=== PATIENT | female | born 1990 | race African-American/Black ===

== ENCOUNTER 2018-01-14 16:14 | Emergency (ER) | payer BC ==
[2018-01-14] MEDS ORDERED: METOCLOPRAMIDE HCL INJ/PF 10 MG/2 ML SDV IV ONE (17:02)
[2018-01-14] MEDS ORDERED: NORMAL SALINE 1000 ML 1,000 ML IV ONE (17:02)
--- NOTE | 2018-01-14 17:03 | ER Document Report ---
ED Medical Screen (RME) - General Chief Complaint: Nausea/Vomiting Stated Complaint: VOMITING, HEADACHE Time Seen by Provider: 01/14/18 17:02 Notes: Patient is 14 weeks and presents with severe vomiting and weakness. States she was referred from clinic to come to the emergency department today. 10 days ago she states she had an ultrasound and everything was "normal". TRAVEL OUTSIDE OF THE [place] IN LAST 30 DAYS: No - Related Data Allergies/Adverse Reactions: Penicillins Allergy (Verified 01/14/18 16:16) NAUSEA AND VOMITING tomato Adverse Reaction (Intermediate, Verified 01/14/18 16:16) ITCHING rice Adverse Reaction (Verified 01/14/18 16:16) ITCHING DUST Adverse Reaction (Uncoded 01/14/18 16:16) ITCHING Past Medical History - Social History Chew tobacco use (# tins/day): No Frequency of alcohol use: None Drug Abuse: None - Past Medical History Cardiac Medical History: Reports: Hx DVT - YRS. AGO, SUSPECTED, NEVER FOLLOWED UP FOR DOPPLER, SXS RESOLVED. Denies: Hx Coronary Artery Disease, Hx Heart Attack, Hx Hypertension Pulmonary Medical History: Reports: Hx Asthma, Hx Bronchitis, Hx Pneumonia Denies: Hx COPD Neurological Medical History: Denies: Hx Cerebrovascular Accident, Hx Seizures Renal/ Medical History: Denies: Hx Peritoneal Dialysis Musculoskeltal Medical History: Denies Hx Arthritis Past Surgical History: Denies: Hx Hysterectomy - Immunizations Immunizations up to date: Yes Hx Diphtheria, Pertussis, Tetanus Vaccination: Yes - utd Physical Exam - Vital signs Vitals: Temp Pulse Resp BP Pulse Ox 98.6 F 79 18 128/72 H 97 01/14/18 16:30 01/14/18 16:30 01/14/18 16:30 01/14/18 16:30 01/14/18 16:30 Course - Vital Signs Vital signs: Temp Pulse Resp BP Pulse Ox 98.6 F 79 18 128/72 H 97 01/14/18 16:30 01/14/18 16:30 01/14/18 16:30 01/14/18 16:30 01/14/18 16:30
[2018-01-14 17:49] LABS: ABSOLUTE BASOPHILS # (AUTO) 0.1 10^3/uL (0.0-0.2); ABSOLUTE EOSINOPHILS # (AUTO) 0.2 10^3/uL (0.0-0.6); ABSOLUTE LYMPHOCYTES (AUTO) 2.6 10^3/uL (0.5-4.7); ABSOLUTE MONOCYTES (AUTO) 0.3 10^3/uL (0.1-1.4); ABSOLUTE NEUT (AUTO) 4.6 10^3/uL (1.7-8.2); EOSINOPHILS % (AUTO) 2.5 % (0-6); HEMATOCRIT 40.4 % (36.0-47.0); HEMOGLOBIN 13.1 g/dL (12.0-15.5); LYMPHOCYTES % (AUTO) 33.7 % (13-45); MEAN CORPUSCULAR HEMOGLOBIN 25.1 pg (27.0-33.4); MEAN CORPUSCULAR HGB CONC 32.4 g/dL (32.0-36.0); MEAN CORPUSCULAR VOLUME 77 fl (80-97); MONOCYTES % (AUTO) 4.3 % (3-13); PLATELET COUNT 409 10^3/uL (150-450); RED BLOOD COUNT 5.22 10^6/uL (3.72-5.28); RED CELL DISTRIBUTION WIDTH 15.3 % (11.5-14.0); SEGMENTED NEUTROPHILS % (AUTO) 58.5 % (42-78); TOTAL CELLS COUNTED % (AUTO) 100 %; WHITE BLOOD COUNT 7.8 10^3/uL (4.0-10.5)
[2018-01-14 17:57] LABS: APPEARANCE,URINE CLEAR; BILIRUBIN,URINE NEGATIVE (NEGATIVE); GLUCOSE, URINE NEGATIVE (NEGATIVE); KETONES,URINE NEGATIVE (NEGATIVE); LEUKOCYTE ESTERASE,URINE NEGATIVE (NEGATIVE); NITRITE,URINE NEGATIVE (NEGATIVE); PROTEIN,URINE 30 mg/dL (NEGATIVE); URINE SPECIFIC GRAVITY 1.027
[2018-01-14 17:59] LABS: COLOR,URINE YELLOW
[2018-01-14 18:03] LABS: ALANINE AMINOTRANSFERASE 20 U/L (9-52); ALBUMIN 4.5 g/dL (3.5-5.0); ALKALINE PHOSPHATASE 85 U/L (38-126); ANION GAP 12 (5-19); ASPARTATE AMINO TRANSFERASE 27 U/L (14-36); BILIRUBIN,DIRECT 0.4 mg/dL (0.0-0.4); BILIRUBIN,TOTAL 0.4 mg/dL (0.2-1.3); BLOOD UREA NITROGEN 4 mg/dL (7-20); CALCIUM 9.7 mg/dL (8.4-10.2); CARBON DIOXIDE 24 mmol/L (22-30); CHLORIDE 103 mmol/L (98-107); GLUCOSE 85 mg/dL (75-110); POTASSIUM 3.9 mmol/L (3.6-5.0); SODIUM 138.6 mmol/L (137-145); TOTAL PROTEIN 8.4 g/dL (6.3-8.2)
--- NOTE | 2018-01-14 19:49 | ER Document Report ---
ED General - General Chief Complaint: Nausea/Vomiting Stated Complaint: VOMITING, HEADACHE Time Seen by Provider: 01/14/18 17:02 TRAVEL OUTSIDE OF THE [place] IN LAST 30 DAYS: No - HPI Notes: Patient is a 27-year-old female approximately 14 weeks who presents to the ED complaining of nausea, vomiting 2-3 today as well as lower abdominal cramping that has remained constant throughout the day. Patient states that she was directed to the emergency department by her [facility] clinic. Patient has not vomited in the last 6 hours. She has had a decreased p.o. intake today. She denies any significant past medical history. She denies any smoking, IV drug use, alcohol. She has not noticed any vaginal discharge, odor , or bleeding. Denies any headache, fever, neck pain, URI, sore throat, chest pain, palpitations, syncope, cough, shortness of breath, wheeze, dyspnea, diarrhea, urinary retention, dysuria, hematuria, back pain, loss of control of bowel or bladder, numbness/tingling, saddle anesthesia, muscle paralysis/ weakness, or rash. - Related Data Allergies/Adverse Reactions: Penicillins Allergy (Verified 01/14/18 16:16) NAUSEA AND VOMITING tomato Adverse Reaction (Intermediate, Verified 01/14/18 16:16) ITCHING rice Adverse Reaction (Verified 01/14/18 16:16) ITCHING DUST Adverse Reaction (Uncoded 01/14/18 16:16) ITCHING Past Medical History - Social History Smoking Status: Never Smoker Chew tobacco use (# tins/day): No Frequency of alcohol use: None Drug Abuse: None Family History: CAD, Hypertension Patient has suicidal ideation: No Patient has homicidal ideation: No - Past Medical History Cardiac Medical History: Reports: Hx DVT - YRS. AGO, SUSPECTED, NEVER FOLLOWED UP FOR DOPPLER, SXS RESOLVED. Denies: Hx Coronary Artery Disease, Hx Heart Attack, Hx Hypertension Pulmonary Medical History: Reports: Hx Asthma, Hx Bronchitis, Hx Pneumonia Denies: Hx COPD Neurological Medical History: Denies: Hx Cerebrovascular Accident, Hx Seizures Renal/ Medical History: Denies: Hx Peritoneal Dialysis Musculoskeltal Medical History: Denies Hx Arthritis Past Surgical History: Denies: Hx Hysterectomy - Immunizations Immunizations up to date: Yes Hx Diphtheria, Pertussis, Tetanus Vaccination: Yes - utd Review of Systems - Review of Systems -: Yes All other systems reviewed and negative Physical Exam - Vital signs Vitals: Temp Pulse Resp BP Pulse Ox 98.6 F 79 18 128/72 H 97 01/14/18 16:30 01/14/18 16:30 01/14/18 16:30 01/14/18 16:30 01/14/18 16:30 - Notes Notes: PHYSICAL EXAMINATION: GENERAL: Well-appearing, well-nourished and in no acute distress. A&Ox4. Answers questions appropriately. HEAD: Atraumatic, normocephalic. EYES: Pupils equal round and reactive to light, extraocular movements intact, sclera anicteric, conjunctiva are normal. LUNGS: Breath sounds clear to auscultation bilaterally and equal. No wheezes rales or rhonchi. HEART: Regular rate and rhythm without murmurs, rubs, gallops. ABDOMEN: Soft, nondistended abdomen. No guarding, no rebound. No masses appreciated. Normal bowel sounds present. No CVA tenderness bilaterally. + mild tenderness to the lower abd b/l. No tenderness at McBurney point. segura negative. Musculoskeletal: FROM to passive/active. Strength 5+/5. Extremities: No cyanosis, clubbing, or edema b/l. Peripheral pulses 2+. Capillary refill less than 3 seconds. NEUROLOGICAL: Normal speech, normal gait. Normal sensory, motor exams PSYCH: Normal mood, normal affect. SKIN: Warm, Dry, normal turgor, no rashes or lesions noted. Course - Re-evaluation Re-evalutation: 01/14/18 21:24 Patient is an afebrile, well-hydrated, 27-year-old female who presents to the ED with resolved nausea and vomiting. Patient also has pelvic cramping during . Vitals are acceptable. PE is otherwise unremarkable. CBC, CMP, urinalysis were unremarkable for any acute pathology. Transabdominal well -being ultrasound was unremarkable for any acute pathology. Patient is tolerating p.o. without any difficulties. She has not had any episodes of emesis throughout her stay. Patient's abdomen was otherwise soft and did not have any tenderness at McBurney point and had a negative Segura sign. No other labs or imaging warranted at this time based on H&P. Low suspicion/risk for acute appendicitis, bowel obstruction, acute cholecystitis, acute cholangitis, perforated diverticulitis, incarcerated hernia, pancreatitis, perforated ulcer, peritonitis, sepsis, pelvic inflammatory disease, or other systemic emergent condition at this time. Patient is aware that her condition can change from initial presentation and she needs to monitor symptoms closely and seek medical attention if any acute changes. Conservative measures otherwise for symptoms. Recheck with OBGYN in 2-3 days. Recheck with your PCM in 1 week. Return to the ED with any worsening/concerning symptoms otherwise as reviewed in discharge. Patient is in agreement. - Vital Signs Vital signs: Temp Pulse Resp BP Pulse Ox 98.6 F 79 18 128/72 H 97 01/14/18 16:30 01/14/18 16:30 01/14/18 16:30 01/14/18 16:30 01/14/18 16:30 - Laboratory Result Diagrams: 01/14/18 17:25 01/14/18 17:25 Laboratory results interpreted by me: 01/14/18 01/14/18 01/14/18 17:25 17:25 17:25 MCV 77 L MCH 25.1 L RDW 15.3 H BUN 4 L Total Protein 8.4 H Urine Protein 30 H Urine Urobilinogen 4.0 H Discharge - Discharge Clinical Impression: Pelvic pain affecting Qualifiers: Trimester: unspecified trimester Qualified Code(s): O26.899 - Other specified related conditions, unspecified trimester; R10.2 - Pelvic and perineal pain; R10.2 - Pelvic and perineal pain Condition: Stable Disposition: HOME, SELF-CARE Instructions: Pelvic Pain in ([facility]), Antinausea Medication ([facility]) Additional Instructions: Maintain adequate fluid and food intake [place] diet ([facility] Bananas, rice, apples, toast, etc Zofran as needed tylenol if needed Monitor for any worsening symptoms Make sure you are staying hydrated enough to urinate and have normal BM's Recheck with your PCM in 1 week Schedule an appointment with OBGYN for recheck x2-3 days Return to the ED with any worsening symptoms and/or development of fever, headache, chest pain, palpitations, syncope, shortness of breath, trouble breathing, abdominal pain, n/v/d, blood in stool/urine, weakness, or other worsening symptoms that are concerning to you. Prescriptions: Ondansetron [Zofran Odt 4 mg Tablet] 1 - 2 tab PO Q4H PRN #15 tab.rapdis PRN Reason: For Nausea/Vomiting Forms: Elevated Blood Pressure [facility] - Follow up as needed
--- NOTE | 2018-01-14 21:20 | RADIOLOGY REPORT (SQ) ---
EXAM DESCRIPTION: U/S OB LIMITED COMPLETED DATE/TIME: 01/14/2018 9:08 pm REASON FOR STUDY: approx 14 weeks , cramping COMPARISON: None. TECHNIQUE: Limited transvaginal grayscale ultrasound for evaluation of specific requested obstetrica l parameters. LIMITATIONS: None. FINDINGS: CERVICAL LENGTH: 4 cm Closed. ALF: 9.1 cm. FHR: 163 beats per minute. PRESENTATION: Transverse. OTHER: Posterior placenta. IMPRESSION: LIMITED OBSTETRICAL ULTRASOUND WITH MEASURED PARAMETERS DELINEATED ABOVE. Trimester of : First trimester - 0 to 13 weeks. TECHNICAL DOCUMENTATION: JOB ID: [id number] [employer]- All Rights Reserved Reading location - IP/workstation name: [email or web address]
[2018-01-14 22:11] VITALS: BP 109/70
== END 2018-01-14 22:05 | disposition home or self-care (01) ==
LOC: ER 16:14
DX: O26.891 Other specified pregnancy related conditions, first trimester (principal); R10.2 Pelvic and perineal pain; O21.9 Vomiting of pregnancy, unspecified; O99.511 Diseases of the respiratory system complicating pregnancy, first trimester; J45.909 Unspecified asthma, uncomplicated; Z3A.00 Weeks of gestation of pregnancy not specified
CPT/HCPCS: 99284; 96361; 96374; 36415; 85025; 80053; 81001; 76815; J2765; J7030

== ENCOUNTER 2018-07-03 13:03 | Outpatient (CLI) | payer OTHER ==
[2018-07-03 14:58] LABS: ABSOLUTE BASOPHILS # (AUTO) 0.1 10^3/uL (0.0-0.2); ABSOLUTE LYMPHOCYTES (AUTO) 1.9 10^3/uL (0.5-4.7); ABSOLUTE MONOCYTES (AUTO) 0.4 10^3/uL (0.1-1.4); ABSOLUTE NEUT (AUTO) 5.3 10^3/uL (1.7-8.2); BASOPHILS % (AUTO) 0.9 % (0-2); EOSINOPHILS % (AUTO) 0.5 % (0-6); HEMATOCRIT 36.4 % (36.0-47.0); HEMOGLOBIN 11.8 g/dL (12.0-15.5); LYMPHOCYTES % (AUTO) 25.3 % (13-45); MEAN CORPUSCULAR HEMOGLOBIN 24.8 pg (27.0-33.4); MEAN CORPUSCULAR HGB CONC 32.4 g/dL (32.0-36.0); MEAN CORPUSCULAR VOLUME 76 fl (80-97); MONOCYTES % (AUTO) 4.6 % (3-13); PLATELET COUNT 301 10^3/uL (150-450); RED BLOOD COUNT 4.76 10^6/uL (3.72-5.28); RED CELL DISTRIBUTION WIDTH 15.3 % (11.5-14.0); SEGMENTED NEUTROPHILS % (AUTO) 68.7 % (42-78); TOTAL CELLS COUNTED % (AUTO) 100 %; WHITE BLOOD COUNT 7.7 10^3/uL (4.0-10.5)
[2018-07-03 15:01] LABS: APPEARANCE,URINE CLOUDY; BILIRUBIN,URINE NEGATIVE (NEGATIVE); COLOR,URINE YELLOW; GLUCOSE, URINE NEGATIVE (NEGATIVE); KETONES,URINE NEGATIVE (NEGATIVE); LEUKOCYTE ESTERASE,URINE SMALL (NEGATIVE); NITRITE,URINE NEGATIVE (NEGATIVE); PROTEIN,URINE 30 mg/dL (NEGATIVE)
[2018-07-03 15:18] LABS: URINE AMPHETAMINES SCREEN NEGATIVE; URINE BARBITURATES SCREEN NEGATIVE; URINE BENZODIAZEPINES SCREEN NEGATIVE; URINE COCAINE SCREEN NEGATIVE; URINE MARIJUANA (THC) SCREEN NEGATIVE; URINE METHADONE SCREEN NEGATIVE; URINE PHENCYCLIDINE SCREEN NEGATIVE
[2018-07-03 15:25] LABS: ALANINE AMINOTRANSFERASE 22 U/L (9-52); ALBUMIN 3.4 g/dL (3.5-5.0); ALKALINE PHOSPHATASE 193 U/L (38-126); ANION GAP 10 (5-19); ASPARTATE AMINO TRANSFERASE 15 U/L (14-36); BILIRUBIN,DIRECT 0.4 mg/dL (0.0-0.4); BILIRUBIN,TOTAL 0.5 mg/dL (0.2-1.3); BLOOD UREA NITROGEN 5 mg/dL (7-20); CALCIUM 8.6 mg/dL (8.4-10.2); CARBON DIOXIDE 20 mmol/L (22-30); CHLORIDE 107 mmol/L (98-107); GLUCOSE 76 mg/dL (75-110); POTASSIUM 4.2 mmol/L (3.6-5.0); SODIUM 136.8 mmol/L (137-145); TOTAL PROTEIN 6.3 g/dL (6.3-8.2); URIC ACID 5.6 mg/dL (2.5-6.2)
[2018-07-03 15:28] LABS: URINE CREATININE 248.6 mg/dL (16-327); URINE PROTEIN 7.4 mg/dL (<12)
[2018-07-03] MEDS ORDERED: MICONAZOLE NITRATE 200 MG/SUPP (3 SUPP/BOX) VG SCH (17:00)
--- NOTE | 2018-07-03 17:39 | Non Stress Test Report ---
Non Stress Test Datetime Report Generated by CPN: 07/03/2018 17:39 DEMOGRAPHIC EGA NST: 38.5 EGA NST: 38.5 INDICATION Indication for Study: Other Indication for Study: Ordered by Provider Indication for Study (NST) Other: Labor check Indication for Study (NST) Other: lc URINE RESULTS Urine Protein, NST: Negative MONITORING Monitor Explained: Monitor Explained; Test Explained; Patient Verbalized Understanding Monitor Explained: Monitor Explained; Test Explained; Patient Verbalized Understanding Time on Monitor: 07/03/2018 13:23 Time on Monitor: 07/03/2018 13:35 Time off Monitor: 07/03/2018 15:52 NST Duration: 149 NST INTERVENTIONS NST Interventions: None NST Interventions: Reposition Patient Physician Notified NST: Blackwell CNM BABY A: [id number] BABY A Movement : Present Movement : Present Contraction Frequency : 5-7 Contraction Frequency : 7+ FHR Baseline : 130 FHR Baseline : 125 Accelerations : 15X15 Accelerations : 15X15 Decelerations : None Decelerations : None Variability : Moderate 6-25bpm Variability : Moderate 6-25bpm NST Review: Meets Criteria for Reactive NST NST Review: Meets Criteria for Reactive NST NST Review: Meets Criteria for Reactive NST NST Review and Verified By : ROBERTO Brock Results: Reactive NST Results: Reactive NST REPORT Report Trigger: Send Report
== END 2018-07-03 17:15 | disposition home or self-care (01) ==
LOC: LC 13:03
PROVIDERS: ATTEND Obstetrics & Gynecology Gynecology
PROC: 4A1HXCZ Monitoring of Products of Conception, Cardiac Rate, External Approach (ICD-10-PCS; principal; 2018-07-03)
DX: O47.1 False labor at or after 37 completed weeks of gestation (principal); Z3A.38 38 weeks gestation of pregnancy
CPT/HCPCS: 59025; 36415; 83615; 84156; 84550; 82570; 85025; 81005; 80053; 80307; 84112; J3490

== ENCOUNTER 2018-07-03 19:56 | Inpatient (IN) | payer OTHER ==
[2018-07-03] MEDS ORDERED: LIDOCAINE 1% INJ-PF (10 MG/ML) 30 ML SDV ONE (20:05)
[2018-07-03] MEDS ORDERED: MISOPROSTOL 0.2 MG TABLET ONE (20:05)
[2018-07-03] MEDS ORDERED: OXYTOCIN 10 UNIT/ML VIAL ONE (20:05)
[2018-07-03] MEDS ORDERED: OXYTOCIN/NORMAL SALINE 20 UNIT/1,000 ML RTUINJ ONE (20:05)
--- NOTE | 2018-07-03 20:37 | Admission Physical ---
Datetime Report Generated by CPN: 07/03/2018 20:37 CURRENT ADMISSION Chief Complaint: Uterine Contractions Indication for Induction: Not Applicable Admit Impression : Term, Intrauterine Admit Plan: Initiate Labor Protocol ALLERGIES Medication Allergies: Penicillins/NAUSEA AND VOMI (01/14/2018); tomato/MO/ITCHING (01/14/2018); rice/ITCHING (01/14/2018) Food Allergies: tomato rice OBSTETRICAL HISTORY EDC: 07/12/2018 00:00 : 1 Para: 0 Gestational Diabetes: No Rh Sensitization: No Incompetent Cervix: No NATHAN: No Infertility: No ART Treatment: No Uterine Anomaly: No IUGR: No Hx Previous C/S: No Macrosomia: No Hx Loss/Stillborn: No PIH: No Hx : No Placenta Previa/Abruption: No Depression/PP Depression: No PTL/PROM: No Post Hemorrhage: No Current Procedures: Ultrasound; NST SEE RECORDS Alcohol: No Marijuana : No Cocaine: No Other Illicit Drugs: No Cigarettes: Never Smoker. [id number] MEDICAL HISTORY Diabetes: No Blood Transfusion: No Pulmonary Disease (Asthma, TB): Yes Breast Disease: No Hypertension: No Stratigrapher Surgery: No Heart Disease: No Hosp/Surgery: No Autoimmune Disorder: No Anesthetic Complications: No Kidney Disease: No Abnormal Pap Smear: No Neuro/Epilepsy: No Psychiatric Disorders: No Other Medical Diseases: No Hepatitis/Liver Disease: No Significant Family History: No Varicosities/Phlebitis: No Trauma/Violence : No Thyroid Dysfunction: No Medical History Comments: Hx of asthma last used inhaler a couple weeks ago INFECTIOUS HISTORY Gonorrhea: No Genital Herpes: No Chlamydia: No Tuberculosis: No Syphilis: No Hepatitis: No HIV/AIDS Exposure: No Rash or Viral Illness: No HPV: No PHYSICAL EXAM General: Normal HEENT: Normal Neurologic: Normal Thyroid: Normal Heart: Normal Lungs: Normal Breast: Deferred Back: Normal Abdomen: Normal Genitourinary Exam: Normal Extremities: Normal DTRs: Normal Pelvic Type: Adequate FETUS A EGA: 38.5 PLANS FOR LABOR AND DELIVERY Labor and Delivery: None Pain Management: Epidural Feeding Preference: Breast Benefit of Breast Feed Discussed: Yes Circumcision: N/A INFORMED CONSENT Signature: with User ID: [email or web address]
[2018-07-03] MEDS ORDERED: PSEUDOEPHEDRINE HCL 30 MG TABLET PO PRN (20:40)
[2018-07-03] MEDS ORDERED: ZOLPIDEM TARTRATE 5 MG TABLET PO PRN (20:40)
[2018-07-03] MEDS ORDERED: DIPH/PERTUSS(ACELL)/TETANUS VAC/PF 0.5 ML SYR (>=10YO) IM PRN (20:40)
[2018-07-03] MEDS ORDERED: PROMETHAZINE HCL INJ 25 MG/1 ML VIAL IV PRN (20:40)
[2018-07-03] MEDS ORDERED: OXYTOCIN/NORMAL SALINE 20 UNIT/1,000 ML RTUINJ IV PRN (20:40)
[2018-07-03] MEDS ORDERED: NA PHOS,M-B/NA PHOS,DI-BA (ADULT) 133 ML ENEMA PR PRN (20:40)
[2018-07-03] MEDS ORDERED: MAGNESIUM HYDROXIDE SUSP 30 ML UDCUP PO PRN (20:40)
[2018-07-03] MEDS ORDERED: ACETAMINOPHEN WITH CODEINE #3 TABLET PO PRN (20:40)
[2018-07-03] MEDS ORDERED: DIBUCAINE 1% OINTMENT 28 GM TP PRN (20:40)
[2018-07-03] MEDS ORDERED: PROMETHAZINE HCL 25 MG SUPP.RECT PR PRN (20:40)
[2018-07-03] MEDS ORDERED: PROMETHAZINE HCL 25 MG TABLET PO PRN (20:40)
[2018-07-03] MEDS ORDERED: BENZOCAINE/MENTHOL AEROSOL SPRAY 56 ML TOP PRN (20:40)
[2018-07-03] MEDS ORDERED: GLYCERIN/WITCH HAZEL LEAF 1 EACH MED..PAD TP PRN (20:40)
[2018-07-03] MEDS ORDERED: DIPHENHYDRAMINE HCL 25 MG CAPSULE PO PRN (20:40)
[2018-07-03] MEDS ORDERED: MEASLES,MUMPS&RUBELLA VACC/PF 0.5 ML VIAL SUBCUT PRN (20:40)
[2018-07-03] MEDS ORDERED: ACETAMINOPHEN 650 MG SUPP.RECT PR PRN (20:40)
[2018-07-03 21:06] LABS: ABSOLUTE LYMPHOCYTES (AUTO) 0.9 10^3/uL (0.5-4.7); ABSOLUTE MONOCYTES (AUTO) 0.2 10^3/uL (0.1-1.4); ABSOLUTE NEUT (AUTO) 11.3 10^3/uL (1.7-8.2); BASOPHILS % (AUTO) 0.2 % (0-2); HEMATOCRIT 36.5 % (36.0-47.0); HEMOGLOBIN 11.8 g/dL (12.0-15.5); LYMPHOCYTES % (AUTO) 7.2 % (13-45); MEAN CORPUSCULAR HGB CONC 32.3 g/dL (32.0-36.0); MEAN CORPUSCULAR VOLUME 78 fl (80-97); MONOCYTES % (AUTO) 1.9 % (3-13); PLATELET COUNT 321 10^3/uL (150-450); RED BLOOD COUNT 4.71 10^6/uL (3.72-5.28); RED CELL DISTRIBUTION WIDTH 15.4 % (11.5-14.0); SEGMENTED NEUTROPHILS % (AUTO) 90.7 % (42-78); TOTAL CELLS COUNTED % (AUTO) 100 %; WHITE BLOOD COUNT 12.4 10^3/uL (4.0-10.5)
--- NOTE | 2018-07-03 21:31 | Warning Signs in Babies ---
VOD Warning Signs Datetime Report Generated by [facility]: 07/03/2018 21:30 VOD#608 -Warning Signs in Babies: Needs to be viewed. (07/03/2018 13:27:Nathalie Hudson RN)
--- NOTE | 2018-07-03 22:44 | Delivery Summary ---
Del Sum A-C Datetime Report Generated by CPN: 07/03/2018 22:44 DELIVERY PERSONNEL DELIVERY PERSONNEL: [id number] Delivery Doctor:: Delvin Llamas MD Labor and Delivery Nurse:: Nathalie Hudson RNhop grower Nurse:: Farooq Tamayo RN Product Safety Specialist:: Angela English RN Nursery Nurse:: ROBERTO Chand/WASTE REDUCTION COORDINATOR: ST [facility] Additional Personnel: : Nikki Pepe RN MATERNAL INFORMATION Delivery Anesthesia: None Medications After Delivery: Other-Please Comment Meds After Delivery Comment: Pitocin 20 units IM Maternal Complications: Precipitous Labor (<3hrs) LABOR SUMMARY EDC: 07/12/2018 00:00 No. Babies in Womb: 1 Attempted: No Labor Anesthesia: None LABOR INFORMATION Reason for Induction: Not Applicable Complete Dilatation: 07/03/2018 19:58 Oxytocin: N/A Group B Beta Strep: neg Steroids Given: None Reason Steroids Not Administered: Not Applicable MEMBRANES Membranes Rupture Method: Spontaneous Rupture of Membranes: 07/03/2018 18:30 Length of Rupture (hr): 1.73 STAGES OF LABOR Stage 2 hr: 0 Stage 2 min: 16 Stage 3 hr: 0 Stage 3 min: 8 VAGINAL DELIVERY Episiotomy: None Laceration #1: Perineal Laceration Extension #1: Second Degree Laceration Repair: Yes Laceration Repair Note: 2nd degree tear repaired with 2-0 vicryl Sponge Count Correct: N/A CSECTION DELIVERY Primary Indication: N/A Secondary Indication: N/A CSection Incidence: N/A Labor: N/A Elective: N/A CSection Incision: N/A BABY A INFORMATION Infant Delivery Date/Time: 07/03/2018 20:14 Method of Delivery: Vaginal Born in Route : No : N/A Forceps: N/A Vacuum Extraction: N/A Shoulder Dystocia : No PRESENTATION/POSITION BABY A Presentation: Cephalic Cephalic Presentation: Vertex Breech Presentation: N/A PLACENTA INFORMATION BABY A Placenta Delivery Time : 07/03/2018 20:22 Placenta Method of Delivery: Spontaneous Placenta Status: Delivered SCORES BABY A Heart Rate 1 min: >100 bpm Resp Effort 1 min: Good Cry Reflex Irritability 1 min: Cough or Sneeze or Pulls Away Muscle Tone 1 min: Active Motion Color 1 min: Blue/Pale Resuscitation Effort 1 min: Tactile Stimulation SCORE 1 MIN: 8 Heart Rate 5 min: >100 bpm Resp Effort 5 min: Good Cry Reflex Irritability 5 min: Cough or Sneeze or Pulls Away Muscle Tone 5 min: Active Motion Color 5 min: Body Twining, Extremities Blue Resuscitation Effort 5 min: Tactile Stimulation SCORE 5 MIN: 9 INFORMATION BABY A Gestational Age at Delivery: 38.5 Gestational Status: Early Term- 37- 38.6 Weeks Outcome : Liveborn Condition : Stable Infant Sex: Female IDENTIFICATION BABY A Verification Date/Time: 07/03/2018 20:31 ID Band Number: [id number] Mother's Name Verified: Yes RN Verifying : Julian Tamayo, RN and L. Karuna, SAUSAGE MAKER WEIGHT/LENGTH BABY A Infant Birthweight (gm): 2640 Weight (lb): 5 Infant Weight (oz): 13 Length (in): 18.00 Length (cm): 45.72 CORD INFORMATION BABY A No. Cord Vessels: 3 Nuchal Cord : N/A Cord Blood Taken: Yes-For Eval (Mom's Blood Type - or O+) Infant Suction: Mouth; Nose ASSESSMENT BABY A Infant Complications: None Physical Findings at Delivery: Within Normal Limits Skin to Skin: Yes Skin to Skin Time (min): 60 Transferred To: Nursery BABY B INFORMATION : N/A SIGNATURES Signature: with User ID: [email or web address]
[2018-07-03] MEDS: IBUPROFEN 800 MG TABLET PO SCH ×2 (22:49→22:54)
[2018-07-03] MEDS: FAMOTIDINE 20 MG TABLET PO SCH (22:49)
[2018-07-04] MEDS: IBUPROFEN 800 MG TABLET PO SCH ×3 (05:33→21:10)
[2018-07-04 08:18] LABS: HEMATOCRIT 35.7 % (36.0-47.0); HEMOGLOBIN 11.4 g/dL (12.0-15.5); MEAN CORPUSCULAR HEMOGLOBIN 24.7 pg (27.0-33.4); MEAN CORPUSCULAR VOLUME 77 fl (80-97); PLATELET COUNT 293 10^3/uL (150-450); RED BLOOD COUNT 4.62 10^6/uL (3.72-5.28); RED CELL DISTRIBUTION WIDTH 15.4 % (11.5-14.0); WHITE BLOOD COUNT 13.8 10^3/uL (4.0-10.5)
[2018-07-04] MEDS: PRENATAL VITAMIN W DHA CAPSULE PO SCH (09:09)
[2018-07-04] MEDS: FERROUS SULFATE 325 MG TABLET PO SCH ×2 (09:09→18:09)
[2018-07-04] MEDS: DOCUSATE SODIUM 100 MG CAPSULE PO SCH ×2 (09:09→18:09)
[2018-07-04] MEDS: FAMOTIDINE 20 MG TABLET PO SCH ×2 (09:09→21:10)
[2018-07-04] MEDS: SENNOSIDES/DOCUSATE 8.6-50 MG 1 EACH TABLET PO SCH (09:09)
--- NOTE | 2018-07-04 09:23 | PDOC PROGRESS REPORT ---
Subjective-OB Progress Note for:: 07/04/18 Subjective: Doing well, no c/o, holding baby, Physical Exam (OB) Vital Signs: Temp Pulse Resp BP Pulse Ox 98.3 F 66 16 121/77 99 07/04/18 08:15 07/04/18 08:15 07/04/18 08:15 07/04/18 08:15 07/04/18 08:15 - Lochia Lochia Amount: Moderate 25-50 ml Lochia Color: Rubra/Red - Abdomen Description: Tender, Soft Fundal Description: Firm, Midline Fundal Height: u/u - u/2 Objective-Diagnostic Laboratory: 07/04/18 07:51 07/03/18 07/03/18 07/04/18 20:52 20:52 07:51 WBC 12.4 H 13.8 H RBC 4.71 4.62 Hgb 11.8 L 11.4 L Hct 36.5 35.7 L MCV 78 L 77 L MCH 25.0 L 24.7 L MCHC 32.3 32.0 RDW 15.4 H 15.4 H Plt Count 321 293 Seg Neutrophils % 90.7 H Lymphocytes % 7.2 L Monocytes % 1.9 L Eosinophils % 0.0 Basophils % 0.2 Absolute Neutrophils 11.3 H Absolute Lymphocytes 0.9 Absolute Monocytes 0.2 Absolute Eosinophils 0.0 Absolute Basophils 0.0 Blood Type O POSITIVE Antibody Screen NEGATIVE Assessment and Plan(PN) - Assessment and Plan (1) Delivery normal Is this a current diagnosis for this admission?: Yes - Time Spent with Patient Time with patient: Less than 15 minutes Medications reviewed and adjusted accordingly: Yes - Disposition Anticipated Discharge: Home Within: within 24 hours
[2018-07-05] MEDS: IBUPROFEN 800 MG TABLET PO SCH (06:19)
[2018-07-05 07:57] VITALS: BP 126/81
[2018-07-05] MEDS: DOCUSATE SODIUM 100 MG CAPSULE PO SCH (09:44)
[2018-07-05] MEDS: FAMOTIDINE 20 MG TABLET PO SCH (09:44)
[2018-07-05] MEDS: FERROUS SULFATE 325 MG TABLET PO SCH (09:44)
[2018-07-05] MEDS: SENNOSIDES/DOCUSATE 8.6-50 MG 1 EACH TABLET PO SCH (09:44)
[2018-07-05] MEDS: PRENATAL VITAMIN W DHA CAPSULE PO SCH (09:44)
--- NOTE | 2018-07-05 10:21 | PDOC PROGRESS REPORT ---
Subjective-OB Progress Note for:: 07/05/18 Subjective: Dressed and ready to go home, , no c/o Physical Exam (OB) Vital Signs: Temp Pulse Resp BP Pulse Ox 97.5 F 71 18 126/81 H 99 07/05/18 08:18 07/05/18 08:18 07/05/18 08:18 07/05/18 07:46 07/05/18 08:18 Intake & Output 07/04/18 07/05/18 07/06/18 06:59 06:59 06:59 Intake Total 600 Balance 600 - PIH/Pre-Eclampsia DTR's: 2 + Clonus: Negative Headache: Absent Epigastric Pain: No Visual Changes: No - Lochia Lochia Amount: Scant < 10 ml Lochia Color: Serosa/Brown - Abdomen Description: Soft Hernia Present: No Fundal Description: Firm, Midline Fundal Height: u/u - u/2 Objective-Diagnostic Laboratory: 07/04/18 07:51 Assessment and Plan(PN) - Assessment and Plan (1) Delivery normal Is this a current diagnosis for this admission?: Yes - Time Spent with Patient Medications reviewed and adjusted accordingly: Yes - Disposition Anticipated Discharge: Home Within: Other - home today
--- NOTE | 2018-07-05 10:24 | PDOC DISCHARGE SUMMARY ---
Final Diagnosis Discharge Date: 07/05/18 - Final Diagnosis (1) Delivery normal Is this a current diagnosis for this admission?: Yes Discharge Data - Discharge Medication Home Medications: Vits96/Iron Fum/Folic [ Tablet] 1 each PO DAILY 07/03/18 Gestational Age: 38.4 Procedures: NST, Ultrasound Intrapartum Procedure(s): Spontaneous Vaginal Delivery Complication(s): Laceration-Perineal Laceration-Degree: 2nd - Data Baby 1 Female Home with Mother: Yes Complications: No - Diagnosis Test Laboratory: Temp Pulse Resp BP Pulse Ox 97.5 F 71 18 126/81 H 99 07/05/18 08:18 07/05/18 08:18 07/05/18 08:18 07/05/18 07:46 07/05/18 08:18 07/03/18 07/04/18 20:52 07:51 RBC 4.71 4.62 Hgb 11.8 L 11.4 L Hct 36.5 35.7 L - Discharge information/Instructions Discharge Activity: Activity As Tolerated, No Lifting Over 10 Pounds, No Lifting /Push/Pulling, Pelvic Rest Discharge Diet: As Tolerated, Regular Disposition: HOME, SELF-CARE Follow up with: [facility] in: 3, Weeks
== END 2018-07-05 10:46 | disposition home or self-care (01) | DRG 775 ==
LOC: LC 19:56 → LR 20:07 → 2S 22:29
PROVIDERS: ADMIT Obstetrics & Gynecology Gynecology; ATTEND Obstetrics & Gynecology Gynecology
PROC: 10E0XZZ Delivery of Products of Conception, External Approach (ICD-10-PCS; principal; 2018-07-03)
PROC: 0KQM0ZZ Repair Perineum Muscle, Open Approach (ICD-10-PCS; 2018-07-03)
PROC: 4A1HXCZ Monitoring of Products of Conception, Cardiac Rate, External Approach (ICD-10-PCS; 2018-07-03)
DX: O62.3 Precipitate labor (principal); O99.52 Diseases of the respiratory system complicating childbirth; O70.1 Second degree perineal laceration during delivery; J45.909 Unspecified asthma, uncomplicated; Z79.51 Long term (current) use of inhaled steroids; Z3A.38 38 weeks gestation of pregnancy; Z37.0 Single live birth
CPT/HCPCS: 36415; 85025; 85027; 86592; 86850; 86900; 86901; J2590; J3490

== ENCOUNTER → 2020-09-14 | Outpatient (CLI) | payer OTHER ==
--- NOTE | 2020-09-14 15:45 | RADIOLOGY REPORT (SQ) ---
EXAM DESCRIPTION: U/S NON-OB PELVIS TV W/O DOP IMAGES COMPLETED DATE/TIME: 09/14/2020 11:46 am REASON FOR STUDY: (E28.2)POLYCYSTIC OVARIAN SYNDROME E28.2 POLYCYSTIC OVARIAN SYNDROME COMPARISON: None. TECHNIQUE: Dynamic and static grayscale images acquired of the pelvis via transvaginal approach and recorded on PACS. Additional selected color Doppler and spectral images recorded. LIMITATIONS: None. FINDINGS: UTERUS: There appears to be a 27 mm fibroid. ENDOMETRIAL STRIPE: Normal thickness. There are some small calcifications in the endometrium. CERVIX: 1.9 cm. No nabothian cysts. RIGHT OVARY AND DOPPLER: Normal size. Multiple follicles. Irregular 2.1 cm cyst. No worrisome mass es. Normal arterial vascular flow without evidence for torsion. LEFT OVARY AND DOPPLER: Normal size. Multiple follicles. 2.2 cm cyst. No worrisome masses. Normal arterial vascular flow without evidence for torsion. FREE FLUID: None noted. OTHER: No other significant finding. MEASUREMENTS: UTERUS: 10.7 x 6.6 x 6 cm. ENDOMETRIAL STRIPE: 6 mm. RIGHT OVARY: 3.9 x 3.2 x 2.3 cm. LEFT OVARY: 3.9 x 3.2 x 2.3 cm. IMPRESSION: There appears to be a small uterine fibroid. Benign-appearing cysts are seen in each ov deepa. No additional imaging is required for these. Multiple follicles on each ovary consistent with the diagnosis of polycystic ovarian syndrome. TECHNICAL DOCUMENTATION: JOB ID: [id number] [employer]- All Rights Reserved Rev Reading location - IP/workstation name: [email or web address]
== END ==
LOC: RAD 11:03
PROVIDERS: ATTEND Family Medicine
DX: E28.2 Polycystic ovarian syndrome (principal)
CPT/HCPCS: 76830

== ENCOUNTER → 2020-10-26 | Outpatient (CLI) | payer OTHER ==
--- OUTSIDE RECORDS SUMMARY | 2020-10-26 14:30 | XMS REPORT ---
:1990 [facility] [address] [place] [address] Care Team Providers Name Role Phone Unavailable Unavailable Unavailable Allergies, Adverse Reactions, Alerts Allergy Name Allergy Status Severity Reaction(s) Onset Inactive Treat ing Comments Type Date Date Clinician Amoxicillin Allergy to Active substance Medications Ordered Filled Start Stop Current Ordering Indication Dosage Frequency Signature Comments Components Medication Medication Date Date Medication? Clinician (SIG) Name Name Nexplanon 2017-10 No Nexplanon 68 mg 0-01 68 mg subdermal 00:00: subdermal implant 00 implant Inject by Inject by subcutaneou subcutaneo s route. us route. atorvastati No 1 Q1D atorvastat n 20 mg in 20 mg tablet Take tablet 1 tablet Take 1 every day tablet by oral every day route for by oral 90 days. route for 90 days. Problems Condition Condition Condition Status Onset Resolution Last Treatin g Comments Name Details Category Date Date Treatment Clinician Date Diverticuli Diverticuli Problem Active 2018-10 tis tis 10-14 00:00: 00 Irritable Irritable Problem Active 2018-10 bowel Bowel 10-14 syndrome Syndrome 00:00: characteriz Characteriz 00 ed by ed by constipatio Constipatio n n Family Family Problem Active 2018-10 history of History of 10-14 Ulcerative Ulcerative 00:00: colitis Colitis 00 Surveillanc Surveillanc Problem Active 2018-10 e of e of 10-14 subcutaneou Subcutaneou 00:00: s s 00 contracepti Contracepti ve implant ve Implant Procedures Procedure Date / Time Performed Performing Clinician Devic e pulse oximetry (PROC) 2020-07-17 00:00:00 Results Test Description Test Time Test Comments Text Results Atomic Results Result Comments Lipid 1996 panel - Serum or Plasma 2020-07-11 00:00:00 Test Item Value Reference Range Comments Cholesterol [Mass/volume] in Serum or Plasma (test code 251 mg/d L <200 = 2093-3) Cholesterol in HDL [Mass/volume] in Serum or Plasma 42 mg/dL > or = 50 (test code = 2085-9) Triglyceride [Mass/volume] in Serum or Plasma (test code 58 mg/d L <150 = 2571-8) Cholesterol in LDL [Mass/volume] in Serum or Plasma by 194 mg/dL (calc) calculation (test code = 38946-3) Cholesterol.total/Cholesterol.in HDL [Mass ratio] in 6.0 (calc) <5.0 Serum or Plasma (test code = 9830-1) Cholesterol non HDL [Mass/volume] in Serum or Plasma 209 mg/dL ( calc) <130 (test code = 94664-6) Comprehensive metabolic 2000 panel - Serum or [id number] 00:00:00 Test Item Value Reference Range Comments Glucose [Mass/volume] in Serum or Plasma 102 mg/dL 65-99 (test code = 2345-7) Urea nitrogen [Mass/volume] in Serum or 6 mg/dL 7-25 Plasma (test code = 3094-0) Creatinine [Mass/volume] in Serum or 0.71 mg/dL 0.50-1.10 Plasma (test code = 2160-0) Glomerular filtration rate/1.73 sq 114 mL/min/1.73m2 > or = 60 M.predicted [Volume Rate/Area] in Serum, Plasma or Blood by Creatinine-based formula (MDRD) (test code = 51024-4) Glomerular filtration rate/1.73 sq 132 mL/min/1.73m2 > or = 60 M.predicted among blacks [Volume Rate/Area] in Serum, Plasma or Blood by Creatinine-based formula (MDRD) (test code = 14981-9) Urea nitrogen/Creatinine [Mass Ratio] in 8 (calc) 6-22 Serum or Plasma (test code = 3097-3) Sodium [Moles/volume] in Serum or Plasma 138 mmol/L 135-146 (test code = 2951-2) Potassium [Moles/volume] in Serum or 4.3 mmol/L 3.5-5.3 Plasma (test code = 2823-3) Chloride [Moles/volume] in Serum or Plasma 104 mmol/L 98-11 0 (test code = 2074-0) Carbon dioxide, total [Moles/volume] in 27 mmol/L 20-32 Serum or Plasma (test code = 2027-) Calcium [Mass/volume] in Serum or Plasma 8.9 mg/dL 8.6-10. 2 (test code = 92826-4) Protein [Mass/volume] in Serum or Plasma 6.7 g/dL 6.1-8.1 (test code = 2885-2) Albumin [Mass/volume] in Serum or Plasma 4.0 g/dL 3.6-5.1 (test code = 1751-7) Globulin [Mass/volume] in Serum by 2.7 g/dL (calc) 1.9-3.7 calculation (test code = 79889-6) Albumin/Globulin [Mass Ratio] in Serum or 1.5 (calc) 1.0-2. 5 Plasma (test code = 1759-0) Bilirubin.total [Mass/volume] in Serum or 0.4 mg/dL 0.2-1. 2 Plasma (test code = 1974-2) Alkaline phosphatase [Enzymatic 90 U/L 31-125 activity/volume] in Serum or Plasma (test code = 6768-6) Aspartate aminotransferase [Enzymatic 16 U/L 10-30 activity/volume] in Serum or Plasma (test code = 1920-8) Alanine aminotransferase [Enzymatic 15 U/L 6-29 activity/volume] in Serum or Plasma (test code = 1742-6) Iron and Iron binding capacity panel - Serum or [id number] 00:00:00 Test Item Value Reference Range Comments Iron [Mass/volume] in Serum or Plasma 54 mcg/dL 40-190 (test code = 2498-4) Iron binding capacity [Mass/volume] in 289 mcg/dL (calc) 250-450 Serum or Plasma (test code = 2500-7) Iron saturation [Mass Fraction] in Serum 19 % (calc) 16-45 or Plasma (test code = 2502-3) CBC W Auto Differential panel - [id number] 00:00:00 Test Item Value Reference Range Comments Leukocytes [#/volume] in Blood by Automated 6.1 thousand/uL 3.8- 10.8 count (test code = 6690-2) Erythrocytes [#/volume] in Blood by 4.54 million/uL 3.80-5.10 Automated count (test code = 789-8) Hemoglobin [Mass/volume] in Blood (test code 11.5 g/dL 11. 7-15.5 = 718-7) Hematocrit [Volume Fraction] of Blood by 35.8 % 35.0-45 .0 Automated count (test code = 4544-3) Erythrocyte mean corpuscular volume [Entitic 78.9 fL 80. 0-100.0 volume] by Automated count (test code = 787-2) Erythrocyte mean corpuscular hemoglobin 25.3 pg 27.0-33. 0 [Entitic mass] by Automated count (test code = 785-6) Erythrocyte mean corpuscular hemoglobin 32.1 g/dL 32.0-36. 0 concentration [Mass/volume] by Automated count (test code = 786-4) Erythrocyte distribution width [Ratio] by 13.0 % 11.0-1 5.0 Automated count (test code = 788-0) Platelets [#/volume] in Blood by Automated 438 thousand/uL 140-4 00 count (test code = 777-3) Platelet mean volume [Entitic volume] in 9.7 fL 7.5-12. 5 Blood by Vanessa (test code = 776-5) Neutrophils [#/volume] in Blood by Automated 2550 cells/uL 150 0-7800 count (test code = 751-8) Lymphocytes [#/volume] in Blood by Automated 2904 cells/uL 850 -3900 count (test code = 731-0) Monocytes [#/volume] in Blood by Automated 329 cells/uL 200-9 50 count (test code = 742-7) Eosinophils [#/volume] in Blood by Automated 250 cells/uL 15- 500 count (test code = 711-2) Basophils [#/volume] in Blood by Automated 67 cells/uL 0-200 count (test code = 704-7) Neutrophils/100 leukocytes in Blood by 41.8 % Automated count (test code = 770-8) Lymphocytes/100 leukocytes in Blood by 47.6 % Automated count (test code = 736-9) Monocytes/100 leukocytes in Blood by 5.4 % Automated count (test code = 5905-5) Eosinophils/100 leukocytes in Blood by 4.1 % Automated count (test code = 713-8) Basophils/100 leukocytes in Blood by 1.1 % Automated count (test code = 706-2) SARS-CoV-2 RNA Resp Ql JOSEPH+[id number] 00:00:00 Test Item Value Reference Range Comments SARS-CoV-2 RNA Resp Ql Not detected [facility] Case JOSEPH+probe (test code = ID: COVID [id number]) Rapid Strep\S\2016-09-18 10:15:00 Test Item Value Reference Range Comments Rapid Strep (test code = RAPIDSTREP) negative N/A Assessments Condition Name Status Diagnosis Date Treating Clinici an Surveillance of subcutaneous Active 2020-07-17 10:07:34 contraceptive implant Hyperlipidemia Active 2020-07-17 10:07:34 Insomnia Active 2020-07-17 10:07:34 Paresthesia of lower extremity Active 2020-07-17 10:07: 34 Generalized anxiety disorder Active 2020-07-17 10:07:34 Depressive disorder Active 2020-07-17 10:07:34 Anemia Active 2020-07-17 10:22:59 Diverticulitis Active 2020-07-17 10:07:34 Family history of Ulcerative colitis Active 2020-07-17 10:07:34 Irritable bowel syndrome characterized Active 2020-07-06 2 10:07:34 by constipation Encounters Start End Encounter Admission Attending Care Care Encounter Date/Time Date/Time Type Type Clinicians Facility Department ID 2020-07-17 2020-07-17 [facility] [id number] 00:00:00 00:00:00 Redinger, Immediate Immediate & [id number] PA-C: [facility] [place] [address], Ph. Social History Smoking Status Start Date Stop Date Never Smoker Vital Signs Vital Name Observation Time Observation Value Comments BP Diastolic 2020-07-17 00:00:00 79 mm[Hg] Height 2020-07-17 00:00:00 67 [in_i] BMI (Body Mass Index) 2020-07-17 00:00:00 39.2 kg/m2 BP Systolic 2020-07-17 00:00:00 106 mm[Hg] Body Weight 2020-07-17 00:00:00 250 [lb_av] Hospital Discharge Instructions 1. Diverticulitis 2. Family history of Ulcerative colitis 3. Irritable bowel syndrome characterized by constipation 4. Surveillance of subcutaneous contraceptive implant 5. Hyperlipidemia pulse oximetry (PROC) cholesterol and triglycerides tests: about these tests high cholesterol: care instructions learning about high cholesterol atorvastatin 20 mg tablet 6. Insomnia 7. Paresthesia of lower extremity 8. Generalized anxiety disorder 9. Depressive disorder 10. Anemia Discussion Note Schedule PAP. labs january 2021 and cpe. Order in After performing a Medical Screening Examination, I estimate there is LOW risk for ACUTE CVA, ACUTE RENAL FAILURE, ACUTE CORONARY SYNDROME, OR THORACICAORTIC DISSECTION, thus I consider the discharge disposition reasonable. The patient and I have discussed the diagnosis and risks, and we agree with discharging home with close follow-up. We also discus sed returning to the Office immediately if new or worsening symptoms occur. We have discussed the symptoms which are most concerning (e.g., bloody sputum, worsening pain or shortness of breath) that necessitate immediate return.
== END ==
LOC: RAD 09:19
PROVIDERS: ATTEND Family Medicine
DX: R79.89 Other specified abnormal findings of blood chemistry (principal); H53.2 Diplopia; R51.9 Headache, unspecified; Z53.9 Procedure and treatment not carried out, unspecified reason